=== PATIENT | female | born 1980 | race Caucasian/White ===

== ENCOUNTER 2016-07-01 17:16 | Emergency (ER) | payer BC ==
[2016-07-01 17:40] VITALS: BP 130/78
[2016-07-01] MEDS ORDERED: Albuterol/Ipratropium NEB.SOL* Albuterol 2.5 MG/Ipratropium 0.5 MG 3 ML INH ONE (18:13)
--- NOTE | 2016-07-01 18:37 | RAD ---
HISTORY: Shortness of breath, cough, wheezing COMPARISONS: January 19, 2010 VIEWS: 2: Frontal dual-energy and lateral views of the chest. FINDINGS: CARDIOMEDIASTINAL SILHOUETTE: The cardiomediastinal silhouette is normal. ISELA: The isela are normal. PLEURA: The costophrenic angles are sharp. No pleural abnormalities are noted. LUNG PARENCHYMA: The lungs are clear. ABDOMEN: The upper abdomen is clear. There is no subphrenic gas. BONES AND SOFT TISSUES: No bone or soft tissue abnormalities are noted. OTHER: None. IMPRESSION: NO ACTIVE CARDIOPULMONARY DISEASE.
--- NOTE | 2016-07-01 19:07 | ED ---
Respiratory - HPI Summary HPI Summary: 36 female presents with complaints of bronchitis, shortness of breath, chest congestion and ear fullness b/l. Patient states these symptoms began approximately 3 days ago and have seemed to have gotten worse. Patient also has asthma and an inhaler that is almost running out. She has been using her inhaler however not often in fear it would run out. It does help when she uses it. She has tried taking OTC Mucinex which has not seemed to give her any relief. Denies chest pain, cyanosis and is not in respiratory distress. Admits to some nasal congestion. Denies headache, sore throat, sinus pressure and abdominal pain. She admits to having bronchitis frequently and antibiotics usually help her. - History of Current Complaint Chief Complaint: EDUpperRespComplaint Stated Complaint: SOB/COUGH/PAIN BOTH EARS Time Seen by Provider: 07/01/16 17:50 Hx Obtained From: Patient Onset/Duration: Sudden Onset, Lasting Days Initial Severity: Moderate Current Severity: Moderate Pain Intensity: 6 Character: Wheezing, Cough (Nonproductive), Dyspnea on Exertion Sputum Amount: None Aggravating Factor(s): URI Alleviating Factor(s): Neb. Bronchodilators (Frequency Of Use) - albuterol inhaler, Upright Position Associated Signs and Symptoms: SOB, URI, Wheezing, Nasal Congestion Related History: Similar Episode/Dx as - past episodes of bronchitis - Allergy/Home Medications Allergies/Adverse Reactions: Allergies Allergy/AdvReac Type Severity Reaction Status Date / Time No Known Allergies Allergy Verified 06/20/16 14:59 PMH/Surg Hx/FS Hx/Imm Hx Endocrine/Hematology History: Denies: Hx Diabetes, Hx Thyroid Disease Cardiovascular History: Denies: Hx Hypertension, Hx Pacemaker/ICD Respiratory History: Reports: Hx Asthma, Other Respiratory Problems/Disorders - HX OF WHEEZING AND TROUBLE BREATHING R/T ASTHMA Denies: Hx Chronic Obstructive Pulmonary Disease (COPD) GI History: Reports: Other GI Disorders - HX OF BLOATING, AND GAS ABOUT 2 YEARS AGO, NO PROBLEMS SINCE Denies: Hx Ulcer Musculoskeletal History: Reports: Hx Back Problems, Hx Tendonitis Sensory History: Denies: Hx Contacts or Glasses, Hx Hearing Aid Opthamlomology History: Denies: Hx Contacts or Glasses Neurological History: Reports: Other Neuro Impairments/Disorders - PAIN CLINIC PATIENT Psychiatric History: Denies: Hx Panic Disorder - Surgical History Surgery Procedure, Year, and Place: 2004 EXCISION OF [place]ST [place], [place]. 2013 breast reduction Hx Anesthesia Reactions: No Infectious Disease History: No Infectious Disease History: Denies: Hx Clostridium Difficile, Hx Hepatitis, Hx Human Immunodeficiency Virus (HIV), Hx of Known/Suspected MRSA, Hx Shingles, Hx Tuberculosis, Hx Known/ Suspected VRE, History Other Infectious Disease, Traveled Outside the [place] in Last 30 Days - Family History Known Family History: Positive: None - Social History Alcohol Use: Rare Substance Use Type: Reports: None Smoking Status (MU): Light Every Day Tobacco Smoker Type: Cigarettes Amount Used/How Often: 1/2 PPD Length of Time of Smoking/Using Tobacco: 1/2 ppd Have You Smoked in the Last Year: No Review of Systems Constitutional: Negative Positive: Nasal Discharge Cardiovascular: Negative Positive: Shortness Of Breath, Cough Gastrointestinal: Negative Musculoskeletal: Negative Skin: Negative Neurological: Negative Psychological: Normal All Other Systems Reviewed And Are Negative: Yes Physical Exam Triage Information Reviewed: Yes Vital Signs On Initial Exam: Initial Vitals Temp Pulse Resp BP Pulse Ox 99.3 F 101 20 130/78 95 07/01/16 17:35 07/01/16 17:35 07/01/16 17:35 07/01/16 17:35 07/01/16 17:35 tachycardia noted. patient has been using albuterol inhaler. Vital Signs Reviewed: Yes Appearance: Positive: Well-Appearing, No Pain Distress, Well-Nourished Skin: Positive: Warm, Skin Color Reflects Adequate Perfusion - < 2seconds, Dry Head/Face: Positive: Normal Head/Face Inspection Eyes: Positive: Conjunctiva Clear ENT: Positive: Hearing grossly normal, Pharynx normal, Nasal congestion, Nasal drainage, TMs normal, TM dull - fluid behind ear drums, no erythema or sign of infection at this time Dental: Negative: Percussion Tenderness @, Cervical Lymphadenopathy Neck: Positive: Supple, Nontender, No Lymphadenopathy Respiratory/Lung Sounds: Positive: Clear to Auscultation, Breath Sounds Present , Wheezes - expiratory, throughout lung corral Cardiovascular: Positive: Normal, RRR, Pulses are Symmetrical in both Upper and Lower Extremities Abdomen Description: Positive: Nontender Bowel Sounds: Positive: Present Musculoskeletal: Positive: Normal, Strength/ROM Intact Neurological: Positive: Normal, Sensory/Motor Intact, Alert, Oriented to Person Place, Time Psychiatric: Positive: Normal Diagnostics - Vital Signs Vital Signs Temp Pulse Resp BP Pulse Ox 07/01/16 17:35 99.3 F 101 20 130/78 95 - Laboratory Lab Statement: Any lab studies that have been ordered have been reviewed, and results considered in the medical decision making process. - Radiology No standard instances Xray Interpretation: No Acute Changes - NO ACTIVE CARDIOPULMONARY DISEASE. Radiology Interpretation Completed By: Radiologist Re-Evaluation - Re-Evaluation First Eval Re-Evaluation Time: 18:45 Change: Improved Comment: feels better after duoneb Disposition - Course Course Of Treatment: x-ray obtained and negative. duoneb and prednisone administered patients condition improved. no respiratory distress noted. not hypoxic, no cyanosis. inhaler will be refilled and steroid and antibiotic prescribed. also gave refills for duoneb to use at home. instructed not to use inhaler and duoneb at the same time. also told not to fill antibiotic unless symptoms persist for the next 5 days as bronchitis is mostly viral. aware of worsening symptoms. given an inhaler in ED to take home with her due to pharmacy being closed. - Differential Dx - Cardiopulmonary Differential Diagnoses - Cardiopulmonary: Asthma, Bronchitis, Other - URI - Diagnoses Provider Diagnoses: Bronchitis, Asthma Discharge - Discharge Plan Condition: Stable Disposition: HOME Prescriptions: Albuterol 2.5MG/3ML (0.083%)* [Ventolin 2.5 MG/3 ML NEB.CEE*] 2.5 mg INH Q4H # 30 neb.cee Albuterol HFA INHALER* [Ventolin HFA Inhaler*] 2 puff INH Q4H PRN #1 mdi PRN Reason: Sob/Wheezing Azithromycin TAB* [Zithromax TAB (Z-LILY) 250 mg #6 tabs] 2 tab PO .TODAY, THEN 1 DAILY #1 lily predniSONE TAB* [Deltasone TAB*] 40 mg PO DAILY #10 tab Patient Education Materials: Acute Bronchitis (ED), Asthma (ED) Referrals: No Primary Care Phys,NOPCP [Primary Care Provider] - [facility] [place] [facility]ERRAL [Outside] Additional Instructions: Take prescribed steroid as directed to help with inflammation. Use inhaler as needed for asthma. Use nebulizer machine 2-3 times daily however do not use the inhaler at the same time. Use one or the other. The inhaler is to have for your asthma however will help with current illness. As you know these medications can make you feel shakey and increase heart-rate. Continue using Mucinex as needed. Hot showers and humidified air helps with breathing. Only take prescribed antibiotics if symptoms persist for the next 5 days, as bronchitis is viral 99% of the time. If symptoms worsen, you develop fever/chills or difficulty breathing increases please seek medical attention promptly.
[2016-07-01] MEDS ORDERED: Albuterol HFA INHALER* 8 gm MDI INH ONE (20:13)
[2016-07-01] MEDS ORDERED: predniSONE TAB* 20 MG ONE (20:13)
[2016-07-01] MEDS ORDERED: predniSONE TAB* 20 MG PO ONE (20:17)
[2016-07-01] MEDS: Albuterol HFA INHALER* 8 gm MDI INH ONE ×2 (20:17→20:19)
== END 2016-07-01 20:20 | disposition home or self-care (01) ==
LOC: ED 17:16
DX: J40 Bronchitis, not specified as acute or chronic (principal); J45.909 Unspecified asthma, uncomplicated; R06.02 Shortness of breath; R09.89 Other specified symptoms and signs involving the circulatory and respiratory systems; F17.210 Nicotine dependence, cigarettes, uncomplicated; R05 Cough
CPT/HCPCS: 71020; 94640; 99282; A9270-GY; J7512

== ENCOUNTER 2017-02-26 09:11 | Emergency (ER) | payer BC ==
[2017-02-26 12:00] VITALS: BP 132/80
--- NOTE | 2017-02-26 12:20 | UC ---
Skin Complaint HPI - HPI Summary HPI Summary: 36 YO FEMALE WITH PRURITIC LESIONS THAT HAVE BEEN DEVELOPING SINCE SEPTEMBER SEEMED TO CORRESPOND TO WHEN HER MOTHER WAS DIAGNOSED WITH CA SHE IS WORRIED SHE HAS HOOK WORM FROM SMOKING CIGARETTES FROM [place] HAS HAD A 70 POUND WT LOSS - History of Current Complaint Chief Complaint: UCSkin Time Seen by Provider: 02/26/17 11:59 Stated Complaint: SKIN COMPLAINT Hx Last Menstrual Period: iud Onset/Duration: Gradual Onset, Lasting Weeks Timing: Constant Onset Severity: Mild Current Severity: Mild Pain Intensity: 0 Pain Scale Used: 0-10 Numeric Character: Pruritus Aggravating Factor(s): Nothing Alleviating Factor(s): Nothing Associated Signs & Symptoms: Positive: Rash - Allergy/Home Medications Allergies/Adverse Reactions: Allergies Allergy/AdvReac Type Severity Reaction Status Date / Time No Known Allergies Allergy Verified 06/20/16 14:59 Review of Systems Constitutional: Negative Skin: Rash Eyes: Negative ENT: Negative Respiratory: Negative Cardiovascular: Negative Gastrointestinal: Negative Genitourinary: Negative Motor: Negative Neurovascular: Negative Musculoskeletal: Negative Neurological: Negative Psychological: Negative Is Patient Immunocompromised?: No All Other Systems Reviewed And Are Negative: Yes PMH/Surg Hx/FS Hx/Imm Hx Previously Healthy: Yes - Surgical History Surgical History: Yes Surgery Procedure, Year, and Place: 2004 EXCISION OF [place]. 2013 breast reduction - Family History Known Family History: Positive: None Negative: Cardiac Disease, Hypertension, Diabetes - Social History Alcohol Use: Rare Substance Use Type: None Smoking Status (MU): Light Every Day Tobacco Smoker Type: Cigarettes Amount Used/How Often: 1/2 PPD Length of Time of Smoking/Using Tobacco: 1/2 ppd Have You Smoked in the Last Year: No Physical Exam Triage Information Reviewed: Yes Appearance: Well-Appearing, No Pain Distress, Well-Nourished Vital Signs: Initial Vital Signs Temp 97.9 F 02/26/17 11:51 Pulse 96 02/26/17 11:51 Resp 18 02/26/17 11:51 BP 132/80 02/26/17 11:51 Pulse Ox 99 02/26/17 11:51 Eyes: Positive: Conjunctiva Clear ENT: Negative: Hearing grossly normal, Nasal congestion, Nasal drainage, Trismus , Muffled/hoarse voice Neck: Positive: Supple, Nontender, No Lymphadenopathy Respiratory: Positive: Lungs clear, Normal breath sounds, No respiratory distress, No accessory muscle use Cardiovascular: Positive: RRR, No Murmur, Pulses Normal Musculoskeletal: Positive: ROM Intact, No Edema Neurological: Positive: Alert Skin Exam: Normal Skin: Positive: Other - MULTIPLE EXCORIATED LESIONS IN VARIOUS STATES OF HEALING Course/Dx - Differential Diagnoses - Skin Complaint Differential Diagnoses: Other - FACTICIOUS SKIN DISORDER VS delusional parasitosis vs prurigo nodularis VS OTHER - Diagnoses Provider Diagnoses: RASH/PRURITIC OF UNCERTAIN CAUSE. 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
== END 2017-02-26 12:20 | disposition home or self-care (01) ==
LOC: UCEAST 09:11
DX: L29.9 Pruritus, unspecified (principal); F17.210 Nicotine dependence, cigarettes, uncomplicated; R21 Rash and other nonspecific skin eruption
CPT/HCPCS: 99211; G0463

== ENCOUNTER 2017-03-15 12:38 | Emergency (ER) | payer BC ==
[2017-03-15 13:11] VITALS: BP 92/68
--- NOTE | 2017-03-15 13:27 | UC ---
UC General HPI - HPI Summary HPI Summary: Pt was evaluated at [facility] on 02/26 for diarrhea. Pt had stool cx that were neg. Pt states diarrhea has resolved. Abd pain still intermittent,but otherwise feeling better. Pt would like to return to work, but requires a note. Pt here requuesting note. Did not see PCP in follow-up. Pt without complaints at today' s visit Pt's states note must read excused 02/26-02/28 and may return without restrictions - History of Current Complaint Chief Complaint: UCGeneralIllness Stated Complaint: NEEDS DOCTOR NOTE FOR WORK Time Seen by Provider: 03/15/17 13:16 Hx Obtained From: Patient, Medical Records Hx Last Menstrual Period: 02/22/17- IUD - Allergy/Home Medications Allergies/Adverse Reactions: Allergies Allergy/AdvReac Type Severity Reaction Status Date / Time No Known Allergies Allergy Verified 03/15/17 13:11 PMH/Surg Hx/FS Hx/Imm Hx Previously Healthy: Yes - Surgical History Surgical History: Yes Surgery Procedure, Year, and Place: 2004 EXCISION OF [place]ST [place]. 2012 breast reduction - Family History Known Family History: Positive: None Negative: Cardiac Disease, Hypertension, Diabetes - Social History Occupation: Employed Full-time Lives: With Family Alcohol Use: Rare Substance Use Type: None Smoking Status (MU): Light Every Day Tobacco Smoker Type: Cigarettes Amount Used/How Often: 1/2 PPD Length of Time of Smoking/Using Tobacco: 1/2 ppd Have You Smoked in the Last Year: No - Immunization History Most Recent Influenza Vaccination: Not UTD Review of Systems Constitutional: Negative Respiratory: Negative Cardiovascular: Negative Gastrointestinal: Vomiting All Other Systems Reviewed And Are Negative: Yes Physical Exam Triage Information Reviewed: Yes Appearance: Well-Appearing, No Pain Distress, Well-Nourished Vital Signs: Initial Vital Signs Temp 98.8 F 03/15/17 13:07 Pulse 101 03/15/17 13:07 Resp 16 03/15/17 13:07 BP 92/68 03/15/17 13:07 Pulse Ox 100 03/15/17 13:07 Vital Signs Reviewed: Yes Eye Exam: Normal Eyes: Positive: Conjunctiva Clear ENT Exam: Normal ENT: Positive: Normal ENT inspection, Hearing grossly normal Dental Exam: Normal Neck exam: Normal Neck: Positive: 1 Respiratory Exam: Normal Respiratory: Positive: Lungs clear, Normal breath sounds, No respiratory distress, No accessory muscle use Cardiovascular Exam: Normal Cardiovascular: Positive: RRR, No Murmur Abdominal Exam: Normal Abdomen Description: Positive: Nontender Musculoskeletal Exam: Normal Musculoskeletal: Positive: Strength Intact Neurological Exam: Normal Neurological: Positive: Alert Psychological Exam: Normal Skin Exam: Normal Course/Dx - Course Course Of Treatment: Pt here requesting return to work note. Pt without current complaints - Differential Dx - Multi-Symptom Provider Diagnoses: recheck, work note Discharge - Discharge Plan Condition: Stable Disposition: HOME Patient Education Materials: Abdominal Pain (ED) Forms: *Work Release Referrals: [facility] [place] [facility] [Outside] Additional Instructions: - STay well hydrated. Drink plenty of non-alcoholic, non-caffinated beverages - Eat regular, healthy meals - It is recommended you contact the referral number to schedule a follow-up appointment with a primary care provider
== END 2017-03-15 13:40 | disposition home or self-care (01) ==
LOC: UCEAST 12:38
DX: R19.7 Diarrhea, unspecified (principal); F17.210 Nicotine dependence, cigarettes, uncomplicated
CPT/HCPCS: 99211; G0463

== ENCOUNTER 2019-04-16 12:33 | Emergency (ER) | payer SELFPAY ==
[2019-04-16 12:38] VITALS: BP 131/78
[2019-04-16 14:20] LABS: ABS Basophils 0.1 10^3/ul (0-0.2); ABS Eosinophils 0.3 10^3/ul (0-0.6); ABS Lymphocytes 1.5 10^3/ul (1.0-4.8); ABS Monocytes 0.9 10^3/ul (0-0.8); Hematocrit 38 % (35-47); Hemoglobin 12.7 g/dL (12.0-16.0); Lymphocyte % 13.1 %; Mean Corpuscular HGB Conc 33 g/dL (31-36); Mean Corpuscular Hemoglobin 32 pg (27-31); Mean Corpuscular Volume 94 fL (80-97); Mean Platelet Volume 7.8 fL (7.4-10.4); Platelet Count 250 10^3/uL (150-450); Red Blood Count 4.04 10^6 /uL (3.70-4.87); Red Cell Distribution Width 13 % (10-15); White Blood Count 11.8 10^3/uL (3.5-10.8)
[2019-04-16 14:29] LABS: Albumin/Globulin Ratio 1.4 (1-3); BUN/Creatinine Ratio 26.6 (8-20); C Reactive Protein 53.75 mg/L (<8.01); Globulin 2.9 g/dL (2-4); Potassium 4.5 mmol/L (3.5-5.0); Total Bilirubin 0.5 mg/dL (0.2-1.0); Total Protein 6.9 g/dL (6.4-8.9)
[2019-04-16] MEDS ORDERED: Acetaminophen TAB* 325 MG PO ONE (14:41)
[2019-04-16] MEDS ORDERED: Sulfamethox/Trimethoprim DS 800/160* TAB PO ONE (14:41)
--- NOTE | 2019-04-16 14:45 | ED ---
Skin Complaint - HPI Summary HPI Summary: Patient is a 38-year-old female presenting with abscess on left buttocks. States that she first noticed a painful lump 3 days ago. Her boyfriend thinks it is a spider bite. Patient denies fever, chills. Denies having this in the past. Otherwise healthy. Denies other pain or symptoms. Symptoms started as an ache on the buttocks, and started to enlarge, patient noticing the area becoming more painful. Believes it to be a spiderbite, but unsure. - History of Current Complaint Chief Complaint: EDRashSkinAbscess Time Seen by Provider: 04/16/19 13:58 Stated Complaint: RASH/BURNING PER PT Hx Obtained From: Patient Hx Last Menstrual Period: 02/22/17- IUD Onset/Duration: Started Days Ago Skin Exposure Onset/Duration: Days Ago Timing: Constant Pain Intensity: 7 Pain Scale Used: 0-10 Numeric Skin Location: Discrete - left buttocks Character: Swelling, Pain, Redness, Raised, Painful Aggravating Symptom(s): Nothing Alleviating Symptom(s): Nothing Associated Signs & Symptoms: Negative - Allergy/Home Medications Allergies/Adverse Reactions: Allergies Allergy/AdvReac Type Severity Reaction Status Date / Time No Known Allergies Allergy Verified 04/16/19 12:38 PMH/Surg Hx/FS Hx/Imm Hx Previously Healthy: Yes Endocrine/Hematology History: Denies: Hx Diabetes, Hx Thyroid Disease Cardiovascular History: Denies: Hx Hypertension, Hx Pacemaker/ICD Respiratory History: Reports: Hx Asthma, Other Respiratory Problems/Disorders - HX OF WHEEZING AND TROUBLE BREATHING R/T ASTHMA Denies: Hx Chronic Obstructive Pulmonary Disease (COPD) GI History: Reports: Other GI Disorders - HX OF BLOATING, AND GAS ABOUT 2 YEARS AGO, NO PROBLEMS SINCE Denies: Hx Ulcer Musculoskeletal History: Reports: Hx Back Problems, Hx Tendonitis Sensory History: Denies: Hx Contacts or Glasses, Hx Hearing Aid Opthamlomology History: Denies: Hx Contacts or Glasses Neurological History: Reports: Other Neuro Impairments/Disorders - PAIN CLINIC PATIENT Psychiatric History: Denies: Hx Panic Disorder - Surgical History Surgery Procedure, Year, and Place: 2004 EXCISION OF [place]. 2013 breast reduction Hx Anesthesia Reactions: No - Immunization History Hx Pertussis Vaccination: No Immunizations Up to Date: Yes Infectious Disease History: No Infectious Disease History: Denies: Hx Clostridium Difficile, Hx Hepatitis, Hx Human Immunodeficiency Virus (HIV), Hx of Known/Suspected MRSA, Hx Shingles, Hx Tuberculosis, Hx Known/ Suspected VRE, History Other Infectious Disease, Traveled Outside the [place] in Last 30 Days - Family History Known Family History: Positive: None Negative: Cardiac Disease, Hypertension, Diabetes - Social History Occupation: Unemployed Lives: With Family Alcohol Use: Rare Hx Substance Use: No Substance Use Type: Reports: None Hx Tobacco Use: Yes Smoking Status (MU): Light Every Day Tobacco Smoker Type: Cigarettes Amount Used/How Often: 1/2 PPD Length of Time of Smoking/Using Tobacco: 1/2 ppd Have You Smoked in the Last Year: No Review of Systems Constitutional: Negative Negative: Fever, Chills, Fatigue Cardiovascular: Negative Negative: Palpitations, Chest Pain Respiratory: Negative Negative: Shortness Of Breath, Cough Gastrointestinal: Negative Negative: Vomiting, Nausea Genitourinary: Negative Positive: no symptoms reported Positive: Other - burning abscess on left buttocks Psychological: Normal All Other Systems Reviewed And Are Negative: Yes Physical Exam Triage Information Reviewed: Yes Vital Signs On Initial Exam: Initial Vitals Temp Pulse Resp BP Pulse Ox 98.6 F 86 16 131/78 99 04/16/19 12:36 04/16/19 12:36 04/16/19 12:36 04/16/19 12:36 04/16/19 12:36 Vital Signs Reviewed: Yes Appearance: Positive: Well-Appearing, No Pain Distress, Well-Nourished Skin: Positive: Warm, Skin Color Reflects Adequate Perfusion, Dry, Tender, Other - 5 cm x 5 cm abscess right superior buttock. Erythema and inuration. Head/Face: Positive: Normal Head/Face Inspection ENT: Positive: Hearing grossly normal Neck: Positive: Supple, Nontender, No Lymphadenopathy Respiratory/Lung Sounds: Positive: Clear to Auscultation, Breath Sounds Present Cardiovascular: Positive: Normal, RRR, S1, S2 Psychiatric: Positive: Normal, Affect/Mood Appropriate Procedures - Sedation Patient Received Moderate/Deep Sedation with Procedure: No Diagnostics - Vital Signs Vital Signs Temp Pulse Resp BP Pulse Ox 04/16/19 12:36 98.6 F 86 16 131/78 99 - Laboratory Lab Results: Lab Results 04/16/19 04/16/19 Range/Units 13:46 13:47 WBC 11.8 H (3.5-10.8) 10^3/uL RBC 4.04 (3.70-4.87) 10^6 /uL Hgb 12.7 (12.0-16.0) g/dL Hct 38 (35-47) % MCV 94 (80-97) fL MCH 32 H (27-31) pg MCHC 33 (31-36) g/dL RDW 13 (10-15) % Plt Count 250 (150-450) 10^3/uL MPV 7.8 (7.4-10.4) fL Neut % (Auto) 75.8 % Lymph % (Auto) 13.1 % [place] % (Auto) 7.6 % Eos % (Auto) 3.0 % Baso % (Auto) 0.5 % Absolute Neuts (auto) 9.0 H (1.5-7.7) 10^3/ul Absolute Lymphs (auto) 1.5 (1.0-4.8) 10^3/ul Absolute Monos (auto) 0.9 H (0-0.8) 10^3/ul Absolute Eos (auto) 0.3 (0-0.6) 10^3/ul Absolute Basos (auto) 0.1 (0-0.2) 10^3/ul Absolute Nucleated RBC 0.0 10^3/ul Nucleated RBC % 0.0 Sodium 137 (135-145) mmol/L Potassium 4.5 (3.5-5.0) mmol/L Chloride 107 (101-111) mmol/L Carbon Dioxide 27 (22-32) mmol/L Anion Gap 3 (2-11) mmol/L BUN 17 (6-24) mg/dL Creatinine 0.64 (0.51-0.95) mg/dL Est GFR ( Amer) 127.0 (>60) Est GFR (Non-Af Amer) 105.0 (>60) BUN/Creatinine Ratio 26.6 H (8-20) Glucose 94 (70-100) mg/dL Calcium 9.0 (8.6-10.3) mg/dL Total Bilirubin 0.50 (0.2-1.0) mg/dL AST 11 L (13-39) U/L ALT 15 (7-52) U/L Alkaline Phosphatase 53 (34-104) U/L C-Reactive Protein 53.75 H (<8.01) mg/L Total Protein 6.9 (6.4-8.9) g/dL Albumin 4.0 (3.2-5.2) g/dL Globulin 2.9 (2-4) g/dL Albumin/Globulin Ratio 1.4 (1-3) Result Diagrams: 04/16/19 13:47 04/16/19 13:46 Lab Statement: Any lab studies that have been ordered have been reviewed, and results considered in the medical decision making process. Course/Dx - Course Course Of Treatment: 38 year old female with painful abscess on right superior buttocks x 3 days. Abscess measures 5 x 5 cm of erythema and induration. 1 ml lidocaine without epi used as local anesthetic. Simple linear incision with a # 11 scalpel blade made to most superior portion of the abscess. Copious amounts of purulent drainage from the area. Using a hemostat, the abscess cavity was probed to break up any loculations and ensure proper drainage. No evidence of purulent material left in cavity. No indication for suture closure. Iodoform dressing - 1 inch, placed. Pt will f/u in 2 days for wound recheck. Tegderm applied. Abx were prescribed. Bandage applied. - Differential Diagnoses - Skin Complaint Differential Diagnoses: Abscess, Cellulitis, MRSA - Diagnoses Provider Diagnoses: Abscess Discharge ED - Sign-Out/Discharge Documenting (check all that apply): Patient Departure - Discharge Plan Condition: Stable Disposition: HOME Prescriptions: Sulfamethox/Trimethoprim DS* [Bactrim DS 800/160 TAB*] 1 tab PO BID #14 tab traMADol TAB* [Ultram*] 50 mg PO Q8H PRN #6 tab MDD 3 PRN Reason: Pain Patient Education Materials: Abscess Follow-up (ED) Referrals: No Primary Care Phys,NOPCP [Primary Care Provider] - Additional Instructions: Follow up in 2 days for wound recheck Keep the bandage applied Bactrim twice daily x 7 days Tramadol up to three times daily for pain - Billing Disposition and Condition Condition: STABLE Disposition: Home
--- NOTE | 2019-04-17 06:13 | ED ---
Imaging and Labs Follow Up Follow Up Type: Labs/Cultures Labs/Culture Result: Wound culture positive MRSA. Patient Communication/Plan: Pt. treated with Bactrim. Waiting sensitivity. No change in treatment needed at this time.
== END 2019-04-16 15:37 | disposition home or self-care (01) ==
LOC: ED 12:33
DX: L02.31 Cutaneous abscess of buttock (principal); B95.62 Methicillin resistant Staphylococcus aureus infection as the cause of diseases classified elsewhere; F17.210 Nicotine dependence, cigarettes, uncomplicated
CPT/HCPCS: 10060; 36415; 80053; 85025; 86140; 87070; 87077; 87186; 87205; 87640; 87641; 99282; A9270-GY

== ENCOUNTER 2019-04-18 12:29 | Emergency (ER) | payer BC ==
[2019-04-18] MEDS ORDERED: Sulfamethox/Trimethoprim DS 800/160* TAB PO ONE (16:38)
[2019-04-18] MEDS ORDERED: Clindamycin CAP* 150 MG PO ONE (16:39)
--- NOTE | 2019-04-18 16:51 | ED ---
Skin Complaint - HPI Summary HPI Summary: Patient is a 38-year-old female who presents emergency department for wound check. Patient seen in ED 2 days ago for buttocks abscess. Abscess was drained and packed at that time. Patient was prescribed Bactrim but states she cannot afford the prescription. Patient is unsure if the area is improving or not. She denies fever, chills, abdominal pain, vomiting. Symptoms are mild in severity. Touching area makes symptoms worse. Nothing makes symptoms better. - History of Current Complaint Chief Complaint: EDLacSutureRecheck Time Seen by Provider: 04/18/19 16:26 Stated Complaint: GENERAL PER PT Hx Obtained From: Patient Hx Last Menstrual Period: 02/22/17- IUD Pain Intensity: 8 - Allergy/Home Medications Allergies/Adverse Reactions: Allergies Allergy/AdvReac Type Severity Reaction Status Date / Time No Known Allergies Allergy Verified 04/16/19 12:38 PMH/Surg Hx/FS Hx/Imm Hx Previously Healthy: Yes Endocrine/Hematology History: Denies: Hx Diabetes, Hx Thyroid Disease Cardiovascular History: Denies: Hx Hypertension, Hx Pacemaker/ICD Respiratory History: Reports: Hx Asthma, Other Respiratory Problems/Disorders - HX OF WHEEZING AND TROUBLE BREATHING R/T ASTHMA Denies: Hx Chronic Obstructive Pulmonary Disease (COPD) GI History: Reports: Other GI Disorders - HX OF BLOATING, AND GAS ABOUT 2 YEARS AGO, NO PROBLEMS SINCE Denies: Hx Ulcer Musculoskeletal History: Reports: Hx Back Problems, Hx Tendonitis Sensory History: Denies: Hx Contacts or Glasses, Hx Hearing Aid Opthamlomology History: Denies: Hx Contacts or Glasses Neurological History: Reports: Other Neuro Impairments/Disorders - PAIN CLINIC PATIENT Psychiatric History: Denies: Hx Panic Disorder - Surgical History Surgery Procedure, Year, and Place: 2004 EXCISION OF GANGLION CYST ON RIGHT [place]RI[place], [place]. 2013 breast reduction Hx Anesthesia Reactions: No Infectious Disease History: No Infectious Disease History: Denies: Hx Clostridium Difficile, Hx Hepatitis, Hx Human Immunodeficiency Virus (HIV), Hx of Known/Suspected MRSA, Hx Shingles, Hx Tuberculosis, Hx Known/ Suspected VRE, History Other Infectious Disease, Traveled Outside the [place] in Last 30 Days - Family History Known Family History: Positive: None, Non-Contributory Negative: Cardiac Disease, Hypertension, Diabetes - Social History Occupation: Employed Full-time Lives: With Family Alcohol Use: Rare Substance Use Type: Reports: None Smoking Status (MU): Light Every Day Tobacco Smoker Type: Cigarettes Amount Used/How Often: 1/2 PPD Length of Time of Smoking/Using Tobacco: 1/2 ppd Have You Smoked in the Last Year: No Review of Systems Constitutional: Negative Negative: Fever Gastrointestinal: Negative Negative: Abdominal Pain, Vomiting, Nausea Positive: Other - Buttocks abscess All Other Systems Reviewed And Are Negative: Yes Physical Exam Triage Information Reviewed: Yes Vital Signs On Initial Exam: Initial Vitals Temp Pulse Resp BP Pulse Ox 96.8 F 76 18 109/63 100 04/18/19 12:38 04/18/19 12:38 04/18/19 12:38 04/18/19 12:38 04/18/19 12:38 Vital Signs Reviewed: Yes Appearance: Positive: Well-Appearing - Pt. lying on bed on abdomen. Cursing at me about her pain and wait time. Skin: Positive: Warm, Dry, Other - Large area of erythema with induration noted to left upper buttocks with wound in center. No packing present. Small amount of purulent matter expressed. Infection is localized and does not spread to rectum. Head/Face: Positive: Normal Head/Face Inspection Eyes: Positive: Normal, EOMI Neck: Positive: Supple Neurological: Positive: Normal, Alert, Oriented to Person Place, Time Psychiatric: Positive: Affect/Mood Appropriate Procedures - Sedation Patient Received Moderate/Deep Sedation with Procedure: No Diagnostics - Vital Signs Vital Signs Temp Pulse Resp BP Pulse Ox 04/18/19 14:23 98.6 F 68 16 115/65 100 04/18/19 12:38 96.8 F 76 18 109/63 100 - Laboratory Lab Statement: Any lab studies that have been ordered have been reviewed, and results considered in the medical decision making process. Course/Dx - Course Course Of Treatment: Patient with abscess to left buttocks. She is afebrile well-appearing. Wound culture growing MRSA highly sensitive to clindamycin. Wound was dressed and patient giving prescription voucher for antibiotic. Advised she needs to see [facility] on Sunday for wound check. To apply warm compresses at least 3 times a day. Tylenol or Motrin for pain as directed. To return to the ER for fever, increased redness, swelling, pain or if concerned. Patient understands and agrees with plan. - Differential Diagnoses - Skin Complaint Differential Diagnoses: Abscess, Cellulitis - Diagnoses Provider Diagnoses: Abscess Discharge ED - Sign-Out/Discharge Documenting (check all that apply): Patient Departure - Discharge Plan Condition: Good Disposition: HOME Prescriptions: Clindamycin HCl 300 mg PO QID #40 capsule Patient Education Materials: Abscess (ED) Referrals: [facility] [Outside] Additional Instructions: Call the [facility] on Sunday for an appointment within 2-3 days Take antibiotic as directed Warm compresses 3x a day Tylenol or Motrin for pain as directed Return to ER for fever, increased redness, swelling, pain or if concerned - Billing Disposition and Condition Condition: GOOD Disposition: Home
[2019-04-18 17:04] VITALS: BP 115/78
== END 2019-04-18 17:03 | disposition home or self-care (01) ==
LOC: ED 12:29
DX: L02.31 Cutaneous abscess of buttock (principal); J45.909 Unspecified asthma, uncomplicated; F17.210 Nicotine dependence, cigarettes, uncomplicated
CPT/HCPCS: 99282; A9270-GY